=== PATIENT | male | born 1980 | race Caucasian/White ===

== ENCOUNTER 2019-10-19 23:28 | Emergency (ER) | payer MEDICARE, OTHER ==
[~2019-10-19] VITALS: Ht 172.7 cm; Wt 88.5 kg
--- NOTE | 2019-10-19 23:28 | NUR ---
C/O BUE, BLE SWELLING X1 DAY. PT AWAKE, ALERT, -SOB, NAD NOTED, PENDING MD SANTANA
[2019-10-19] MEDS ORDERED: EPINEPHRINE (1:1000) 1 MG/ML AMPUL ONE (23:51)
[2019-10-19] MEDS ORDERED: diphenhydrAMINE HCL 50 MG/ML VIAL ONE (23:51)
[2019-10-19] MEDS ORDERED: FAMOTIDINE (20 MG) 20 MG TABLET ONE ×2 (23:52→23:57)
[2019-10-19] MEDS ORDERED: predniSONE 20 MG TABLET ONE (23:52)
[2019-10-20] MEDS ORDERED: diphenhydrAMINE HCL 50 MG/ML VIAL IM ONE
[2019-10-20] MEDS ORDERED: EPINEPHRINE (1:1000) MDV 30 MG/30ML VIAL SUBCUT ONE
[2019-10-20] MEDS ORDERED: FAMOTIDINE (20 MG) 20 MG TABLET PO ONE
[2019-10-20] MEDS ORDERED: predniSONE 10 MG TABLET PO ONE
[2019-10-20 00:33] LABS: CALCIUM, SERUM 9.1 mg/dL (8.5-10.1); CREATININE 0.7 mg/dL (0.6-1.3)
[2019-10-20 01:00] VITALS: BP 132/75
[2019-10-20] MEDS ORDERED: POTASSIUM CHLORIDE 20 MEQ TAB.PRT.SR PO ONE ×2 (01:00→01:25)
[2019-10-20] MEDS ORDERED: FUROSEMIDE 20 MG TABLET PO ONE (01:00)
[2019-10-20] MEDS ORDERED: FUROSEMIDE 20 MG TABLET ONE (01:25)
--- NOTE | 2019-10-20 01:27 | NUR ---
Patient discharged to home in stable condition. Written and verbal after care instructions given. Patient verbalizes understanding of instruction. IV removed. Catheter intact and site benign. Pressure and 4x4 applied to site. No bleeding noted.
== END 2019-10-20 01:28 | disposition home or self-care (01) ==
LOC: ER 23:32
DX: L50.0 Allergic urticaria (principal); R60.0 Localized edema; F17.200 Nicotine dependence, unspecified, uncomplicated; Z88.1 Allergy status to other antibiotic agents; Z71.6 Tobacco abuse counseling
CPT/HCPCS: 36415; 80048; 96372 ×2; 99284; 99406; J0171 ×2; J1200; J7512